=== PATIENT | male | born 1975 | race Caucasian/White ===

== ENCOUNTER 2018-01-23 15:21 | Outpatient (REF) | payer BC, SELFPAY ==
[2018-01-23 19:38] LABS: ALT 33 U/L (12-78); AST 19 U/L (15-37); Albumin 3.6 g/dL (3.4-5.0); Alkaline Phosphatase 82 U/L (46-116); Anion Gap 7.4 mmol/L (3-11); BUN 18 mg/dL (7-18); Bilirubin, Total 0.2 mg/dL (0.2-1.0); CO2 27.6 mmol/L (21.0-32.0); CREATININE 0.82 mg/dL (0.70-1.30); Calcium 8.7 mg/dL (8.5-10.1); Chloride 105 mmol/L (98-107); Glucose 85 mg/dL (70-100); Potassium 4.3 mmol/L (3.5-5.1); Sodium 140 mmol/L (136-145); Total Protein 6.6 g/dL (6.4-8.2)
== END 2018-01-23 15:41 ==
LOC: NCHCN 15:21
PROVIDERS: PCP Internal Medicine; Visit Provider Nurse Practitioner Family
DX: R35.1 Nocturia (principal)
CPT/HCPCS: 80053

== ENCOUNTER 2020-04-29 16:35 | Outpatient (REF) | payer BC, SELFPAY ==
[2020-04-29 19:56] LABS: Calculated LDL 132 mg/dL (<100); Cholesterol 221 mg/dL (<200); Glucose 84 mg/dL (74-106); HDL Cholesterol 73 mg/dL (40-60); Triglyceride 84 mg/dL (<150)
== END 2020-04-29 16:55 ==
LOC: NCHCN 16:35
PROVIDERS: PCP Internal Medicine; Visit Provider Internal Medicine
DX: Z00.00 Encounter for general adult medical examination without abnormal findings (principal); Z13.1 Encounter for screening for diabetes mellitus; Z13.220 Encounter for screening for lipoid disorders
CPT/HCPCS: 80061; 82947

== ENCOUNTER 2022-03-08 16:27 | Outpatient (REF) | payer BC, SELFPAY ==
[2022-03-08 19:56] LABS: Hemoglobin A1C 5.6 % (<5.7)
[2022-03-08 20:28] LABS: Anion Gap 5.8 mmol/L (3-11); BUN 13 mg/dL (7-18); CO2 28.2 mmol/L (21.0-32.0); CREATININE 0.9 mg/dL (0.70-1.30); Chloride 104 mmol/L (98-107); Estimated GFR 106.67 (mL/min/1.73m2); Glucose 130 mg/dL (74-106); Potassium 3.7 mmol/L (3.5-5.1); Sodium 138 mmol/L (136-145); TSH 1.33 uIU/mL (0.36-3.74)
== END 2022-03-08 16:28 | disposition home or self-care (01) ==
LOC: NCHCN 16:27
PROVIDERS: PCP Internal Medicine; Visit Provider Internal Medicine
DX: F17.200 Nicotine dependence, unspecified, uncomplicated (principal); Z00.00 Encounter for general adult medical examination without abnormal findings
CPT/HCPCS: 80048; 83036; 84443

== ENCOUNTER 2023-06-08 14:46 | Emergency (ER) | payer BC, SELFPAY ==
[2023-06-08 14:48] VITALS: BP 160/89; PULSE 100; RESP 18; TEMP 36.6; O2SAT 97
--- NOTE | 2023-06-08 14:53 | W.ED.GENAD ---
HPI General Date/Time Provider Initiated Documentation: 06/08/23 14:53. Limitations to Documentation: no limitations. Information obtained by: patient. HPI Narrative: Patient presents to ED with right knee pain. Patient was wrestling with his kids last week does not recall a specific injury but had some knee pain and knee swelling since then though not severe. He went to [employer] this afternoon to go skiing. However, while going up some stairs felt a pop and a tear in his right knee and has had significant pain. He is having difficulty ambulating. He obviously did not go skiing. He went home and iced it. Continues to have pain and difficulty ambulating and came to the ED. Denies any numbness or weakness distally. Denies any other injury. Related Data Allergies Allergy/AdvReac Type Severity Reaction Status Date / Time venom-honey bee Allergy Swelling/Ed Unverified 01/26/15 14:18 [bee venom (honey bee)] kayden General Stated Complaint: Orthopedic SOFY: 4 Review of Systems Narrative: Per HPI Exam Narrative Exam Narrative: Const: WDWN male in NAD. HEENT: NC/AT. Normal facial exam. Neck: Supple. Trachea midline. Lungs: Normal respiratory effort. Neuro: A+O x 3. Normal speech, mentation. Cranial nerves II - XII grossly intact. No gross motor or sensory deficit. Ext: R knee without obvious swelling. Tender along the lateral meniscus. Decent active and passive range of motion. Can fully extend without difficulty. No tenderness over the patella. Ligaments appear to be intact. Course Vital Signs Vital signs: Vital Signs Temperature 97.9 F 06/08/23 14:48 Pulse 100 H 06/08/23 14:48 Respiratory Rate 18 06/08/23 14:48 Blood Pressure 160/89 H 06/08/23 14:48 Pulse Oximetry 97 06/08/23 14:48 Temperature 97.9 F 06/08/23 14:48 Temperature Source Temporal Artery Scan 06/08/23 14:48 Pulse 100 H 06/08/23 14:48 Respiratory Rate 18 06/08/23 14:48 Respiratory Effort Normal, Non-Labored 06/08/23 14:51 Blood Pressure 160/89 H 06/08/23 14:48 Blood Pressure Position Sitting 06/08/23 14:48 Pulse Oximetry 97 06/08/23 14:48 Medical Decision Making Patient presenting with right knee pain after feeling a pop and tear while going upstairs. Maybe had a minor injury a week ago. No direct trauma by his report but will obtain x-rays. Most likely cartilage injury. Ligaments appear to be intact. Patellar and quadricep tendon intact. Good strength and sensation distal. Toradol given for pain pending x-rays. Right knee x-ray per my read with no acute fracture or dislocation. No obvious effusion. Will place patient in knee immobilizer and have him follow-up with primary care in 1 to 2 weeks. If continued problems may require outpatient MRI and referral to Ortho at that time. Return precautions provided. Quality:SDOH Health Related Social Needs: No Data to Display [facility] All Active Problems (Updated 06/08/23 @ 15:44 by Raghav Pinedo MD) Right knee injury (Acute) Medical History No significant past medical history Surgical History No significant past surgical history Social History Smoking/Tobacco Use Status: Current every day Smoking risk assessment performed?: Yes Alcohol Intake: current Alcohol Intake frequency: a few times a month Drug use: Never Substance use type: does not use Do you feel safe at home: Yes Do you feel safe in your relationship?: Yes Discharge Plan Disposition Patient Disposition: Home Condition: Good Discharge Details Clinical Impression: Right knee injury Primary Care Provider: Raghav Dow ED Provider: Raghav Pinedo Discharge Instructions Instructions: Knee Immobilizer (ED) Additional Instructions: You were seen in the ED for a knee injury. Your ligaments appear to be intact and your x-ray is negative for fracture or dislocation. You may have sustained a cartilaginous/meniscus injury. Wear the knee immobilizer and follow-up with primary care in the next 1 to 2 weeks for recheck. Ice on and off and alternate acetaminophen with ibuprofen for pain. Return to ED for any numbness or weakness in the leg, significantly worsening pain or swelling, other concerns.
[2023-06-08] MEDS: Ketorolac 30 MG/ML VIAL IM (15:10)
--- NOTE | 2023-06-08 15:35 | DI.RAD_ITS ---
Exam(s) XR KNEE RT 3V AP,LAT,CYNDEE EXAM: XR KNEE RT 3V AP,LAT,CYNDEE CLINICAL HISTORY: trauma/pain. TECHNIQUE: 2D digital imaging was performed. Three views. COMPARISON: No exams were available for comparison FINDINGS: BONES: No acute fracture is present. No bony destructive lesion is seen. Minimal periarticular spurri ng. JOINTS: Joint spaces are maintained. The knee is normally aligned. No joint effusion is seen. SOFT TISSUE: Normal. IMPRESSION: Unremarkable radiographs of the right knee. DATA REPOSITORY: RADIATION DOSE DELIVERED:
[2023-06-08 16:26] VITALS: BP 144/73; PULSE 92; RESP 19; TEMP 37.1; O2SAT 93
== END 2023-06-08 16:28 | disposition home or self-care (01) ==
PROVIDERS: Emergency Provider Emergency Medicine; PCP Internal Medicine
DX: M25.561 Pain in right knee (principal); F17.200 Nicotine dependence, unspecified, uncomplicated
CPT/HCPCS: 73562; 96372; 99284; 99283; J1885

== ENCOUNTER 2024-03-01 17:36 | Outpatient (REF) | payer BC, SELFPAY ==
[2024-03-01 19:34] LABS: ALT 27 U/L (16-63); AST 22 U/L (15-37); Albumin 3.6 g/dL (3.4-5.0); Alkaline Phosphatase 69 U/L (46-116); BUN 14 mg/dL (7-18); CREATININE 0.8 mg/dL (0.70-1.30); Calculated LDL 114 mg/dL (<100); Chloride 105 mmol/L (98-107); Cholesterol 188 mg/dL (<200); Estimated GFR 109.17 (mL/min/1.73m2); Glucose 90 mg/dL (74-106); HDL Cholesterol 57 mg/dL (40-60); Potassium 4.2 mmol/L (3.5-5.1); Sodium 140 mmol/L (136-145); Total Protein 7.1 g/dL (6.4-8.2); Triglyceride 85 mg/dL (<150)
== END 2024-03-01 17:37 | disposition home or self-care (01) ==
LOC: NCHCN 17:36
PROVIDERS: PCP Internal Medicine; Visit Provider Internal Medicine
DX: I10 Essential (primary) hypertension (principal)
CPT/HCPCS: 80053; 80061